=== PATIENT | male | born 1975 | race Two or more races ===

== ENCOUNTER 2017-09-22 09:29 | Emergency (ER) | payer OTHER ==
[~2017-09-22] VITALS: Ht 185.4 cm; Wt 120.2 kg
[~2017-09-22 09:29] MED LIST: OSEL75CA PO
[2017-09-22] MEDS ORDERED: ZANTAC150 M3 PO (10:54)
== END 2017-09-22 11:33 | disposition home or self-care (01) ==
LOC: ER 09:29
DX: K29.70 Gastritis, unspecified, without bleeding (principal)

== ENCOUNTER 2019-10-19 09:12 | Emergency (ER) | payer OTHER ==
[~2019-10-19] VITALS: Ht 185.4 cm; Wt 117.0 kg
[~2019-10-19 09:12] MED LIST changes: +ZANTAC150 M3 PO
== END 2019-10-19 14:21 | disposition home or self-care (01) ==
LOC: ER 09:12
DX: R00.2 Palpitations (principal)

== ENCOUNTER 2022-01-02 09:49 | Emergency (ER) | payer OTHER ==
[~2022-01-02] VITALS: Ht 185.4 cm; Wt 94.8 kg
== END 2022-01-02 12:47 | disposition home or self-care (01) ==
LOC: ER 09:49
DX: U07.1 COVID-19 (principal)

== ENCOUNTER 2024-06-18 06:18 | Emergency (ER) | payer OTHER ==
[~2024-06-18] VITALS: Ht 185.4 cm; Wt 108.9 kg
[2024-06-18] MEDS ORDERED: FAMOtidine 40 MG TABLET PO ONE (08:30)
[2024-06-18] MEDS ORDERED: PEPCID AC20 MG PO (08:53)
== END 2024-06-18 09:13 | disposition home or self-care (01) ==
LOC: ER 06:19
DX: K21.9 Gastro-esophageal reflux disease without esophagitis (principal); R00.0 Tachycardia, unspecified; Z91.013 Allergy to seafood

== ENCOUNTER 2024-09-14 11:42 | Emergency (ER) | payer OTHER ==
[~2024-09-14] VITALS: Ht 185.4 cm; Wt 108.9 kg
[~2024-09-14 11:42] MED LIST changes: +PEPCID AC20 MG PO
== END 2024-09-14 15:27 | disposition home or self-care (01) ==
LOC: ER 11:45
DX: S63.631A Sprain of interphalangeal joint of left index finger, initial encounter (principal); W19.XXXA Unspecified fall, initial encounter; Y93.89 Activity, other specified; Y92.89 Other specified places as the place of occurrence of the external cause; Y99.8 Other external cause status; Z91.013 Allergy to seafood

== ENCOUNTER 2025-03-23 08:03 | Emergency (ER) | payer OTHER ==
[~2025-03-23] VITALS: Ht 185.4 cm; Wt 113.4 kg
[2025-03-23] MEDS ORDERED: GUAIFENESIN 200 MG/10 ML BLIST.PACK PO ONE (08:30)
[2025-03-23] MEDS ORDERED: ACETAMINOPHEN 500 MG GEL..CAP PO ONE (08:30)
[2025-03-23 09:22] LABS: BASO % 0.7 % (0.1-1.2); EOS # 0.01 (0.04-0.54); EOS % 0.1 % (0.7-7.0); LYMPH # 0.87 (1.18-3.74); LYMPH % 11.3 % (19.3-53.1); MEAN PLATELET VOLUME 9.80 fl (9.4-12.4); MONO # 0.83 (0.24-0.82); MONO % 10.8 % (4.7-12.5); NEUT # 5.90 (1.56-6.13); NEUT % 76.8 % (34.0-71.1); RED CELL DISTRIBUTION WIDTH 12.3 % (11.6-14.4)
[2025-03-23 09:41] LABS: COVID-19 AG NEGATIVE (NEGATIVE)
== END 2025-03-23 11:08 | disposition home or self-care (01) ==
LOC: ER 08:23
PROVIDERS: General Practice
DX: B34.9 Viral infection, unspecified (principal); Z91.013 Allergy to seafood; Z20.822 Contact with and (suspected) exposure to COVID-19